=== PATIENT | male | born 1985 | race Two or more races ===

== ENCOUNTER 2019-09-03 20:00 | Emergency (ER) | payer SELFPAY ==
[~2019-09-03] VITALS: Ht 180.3 cm; Wt 84.0 kg
[2019-09-03] MEDS ORDERED: ONDANSETRON HCL 4MG/2ML INJ IV STA (22:59)
[2019-09-03] MEDS ORDERED: KETOROLAC 30MG/ML VIAL IV STA (22:59)
[2019-09-03] MEDS ORDERED: SODIUM CHLORIDE 0.9% 1,000 ML IV ONE (22:59)
[2019-09-03 23:54] LABS: CHLORIDE 104 mEq/L (98-107)
[2019-09-03 23:58] LABS: HEMATOCRIT. 42.9 % (42.0-52.0); HEMOGLOBIN. 14.8 g/dL (14.0-18.0); MEAN CORPUSCULAR HEMOGLOBIN 28.9 pg (28.0-32.0); MEAN CORPUSCULAR VOLUME 83.9 fL (80.0-94.0); MEAN PLATELET VOLUME 9.2 fl (7.4-10.4); PLATELET 179 x1000/uL (130-400); RED BLOOD CELL COUNT 5.12 mill/uL (4.7-6.1); RED CELL DISTRIBUTION WIDTH 13.7 % (11.6-14.6)
[2019-09-04] MEDS ORDERED: LEVOFLOXACIN 250MG TABLET PO ONE (01:45)
[2019-09-04 02:14] VITALS: BP 100/52
[2019-09-04 04:14] LABS: ATYPICAL LYMPHOCYTES 1; PLATELET ESTIMATE NORMAL
== END 2019-09-04 02:16 | disposition home or self-care (01) ==
LOC: ER 20:00 → EDBD 20:00 → ER 09-04 02:16
DX: J18.9 Pneumonia, unspecified organism (principal); F12.10 Cannabis abuse, uncomplicated; R42 Dizziness and giddiness
CPT/HCPCS: 36415; 71045; 80053; 85025; 93005; 96361; 96374; 96375; 99284; J1885; J2405; J7030